=== PATIENT | female | born 1990 | race Caucasian/White ===

== ENCOUNTER 2018-08-06 11:24 | Emergency (ER) | payer BC ==
[2018-08-06 12:04] VITALS: BP 124/77
--- NOTE | 2018-08-06 12:28 | UC ---
General HPI - HPI Summary HPI Summary: Well yesterday, with onset of nausea and loose explosive watery stools yesterday. Approximately 10 episodes of diarrhea, has had emesis x 1. Crampy loer abdominal pain but no fever. No infectious contacts. No apparent food sources and no recent travel. Works as a aeroplane pilot. Voiding well, no symptoms of dehydration. - History of Current Complaint Chief Complaint: UCGI Stated Complaint: DIARRHEA,CHILLS, ABD CRAMPS Time Seen by Provider: 08/06/18 12:20 Hx Obtained From: Patient Hx Last Menstrual Period: 07/23/18 Onset/Duration: Sudden Onset, Lasting Days - 1 Timing: Intermittent Episodes Lasting: Onset Severity: Moderate Current Severity: Moderate Pain Intensity: 0 Associated Signs & Symptoms: Positive: Abdominal Pain - crampy, Nausea - initially, now resolved.. Negative: Fever, Headache - Allergy/Home Medications Allergies/Adverse Reactions: Allergies Allergy/AdvReac Type Severity Reaction Status Date / Time sulfamethoxazole Allergy Hives Verified 08/06/18 12:05 [From Bactrim] trimethoprim [From Bactrim] Allergy Hives Verified 08/06/18 12:05 Home Medications: Home Medications Ibuprofen TAB* [Motrin TAB* 600 MG] 600 mg PO ONCE PRN 08/06/18 [History Confirmed 08/06/18] l-Norgest/E.estradiol-E.estrad [Ashlyna 0.15-0.03 &0.01 mg] 1 tab PO DAILY 08/06 [History Confirmed 08/06/18] PMH/Surg Hx/FS Hx/Imm Hx Previously Healthy: Yes - Surgical History Surgical History: None - Family History Known Family History: Positive: Other - mom has celiac disease Family History: denies cardio-vascular history in family lineage - Social History Occupation: Employed Full-time Lives: With Family Alcohol Use: Weekly Alcohol Amount: 4 suki Substance Use Type: None Smoking Status (MU): Never Smoked Tobacco Review of Systems All Other Systems Reviewed And Are Negative: Yes Constitutional: Positive: Fatigue Gastrointestinal: Positive: Vomiting, Diarrhea, Nausea Genitourinary: Positive: Negative Psychological: Positive: Negative Is Patient Immunocompromised?: No Physical Exam Triage Information Reviewed: Yes Appearance: Ill-Appearing - looks fatigued. Vital Signs: Initial Vital Signs Temp 98.1 F 06/30/19 11:53 Pulse 81 08/06/18 11:53 Resp 24 08/06/18 11:53 BP 124/77 08/06/18 11:53 Pulse Ox 98 08/06/18 11:53 Eye Exam: Normal ENT: Positive: Pharynx normal Neck: Positive: Supple, Nontender, No Lymphadenopathy Respiratory: Positive: Lungs clear, Normal breath sounds Cardiovascular: Positive: RRR, No Murmur Abdomen Description: Positive: No Organomegaly, Soft, Other: - mild tenderness to palpation upper quadrants.. Negative: Distended, Guarding Bowel Sounds: Positive: Hypoactive Musculoskeletal Exam: Normal Neurological Exam: Normal Psychological Exam: Normal Course/Dx - Course Course Of Treatment: fluids to diarrhea diet, imodium as needed. - Diagnoses Provider Diagnosis: Gastroenteritis Discharge - Sign-Out/Discharge Documenting (check all that apply): Patient Departure All imaging exams completed and their final reports reviewed: No Studies - Discharge Plan Condition: Stable Disposition: HOME Patient Education Materials: Gastroenteritis (ED), Nutrition Tips for Relief of Diarrhea (ED) Forms: *Work Release Referrals: Amada Caraballo MD [Primary Care Provider] - Additional Instructions: You can use imodium 2mg up to 4 times per day, but be careful not to overuse as it could trigger constipation. Continue high intake of clear fluids to maintain hydration, and advance diet gradually. Anticipate that it could take up to a week for stools to return to normal. - Billing Disposition and Condition Condition: STABLE Disposition: Home
== END 2018-08-06 12:55 | disposition home or self-care (01) ==
LOC: UCCORT 11:24
DX: K52.9 Noninfective gastroenteritis and colitis, unspecified (principal); Z88.1 Allergy status to other antibiotic agents
CPT/HCPCS: 99211; G0463

== ENCOUNTER 2018-09-09 15:25 | Emergency (ER) | payer BC ==
[2018-09-09 16:01] VITALS: BP 125/84
--- NOTE | 2018-09-09 16:05 | UC ---
Lower Extremity/Ankle HPI - HPI Summary HPI Summary: Tried to avoid stepping on her cat and twisted the right foot. Unable to bear weight. - History of Current Complaint Stated Complaint: RIGHT FOOT INJURY Hx Obtained From: Patient Hx Last Menstrual Period: 07/23/18 ?: No Onset/Duration: Sudden Onset, Lasting Hours - ,1, Still Present Severity Initially: Severe Severity Currently: Severe Aggravating Factor(s): Standing, Ambulation Alleviating Factor(s): Rest, Elevation Able to Bear Weight: No - Allergies/Home Medications Allergies/Adverse Reactions: Allergies Allergy/AdvReac Type Severity Reaction Status Date / Time sulfamethoxazole Allergy Hives Verified 09/09/18 16:02 [From Bactrim] trimethoprim [From Bactrim] Allergy Hives Verified 09/09/18 16:02 PMH/Surg Hx/FS Hx/Imm Hx Previously Healthy: Yes - Surgical History Surgical History: None - Family History Known Family History: Positive: Hypertension, Other - mom has celiac disease Negative: Cardiac Disease, Diabetes Family History: denies cardio-vascular history in family lineage - Social History Occupation: Employed Full-time Lives: Alone - with BF Alcohol Use: Weekly Alcohol Amount: 4 suki Substance Use Type: None Smoking Status (MU): Never Smoked Tobacco Review of Systems All Other Systems Reviewed And Are Negative: Yes Musculoskeletal: Positive: Arthralgia - lateral right foot Is Patient Immunocompromised?: No Physical Exam Triage Information Reviewed: Yes Appearance: Well-Appearing, No Pain Distress - sitting in the wheelchair., Well- Nourished Vital Signs Reviewed: Yes Eyes: Positive: Conjunctiva Clear Neck exam: Normal Respiratory Exam: Normal Cardiovascular Exam: Normal Musculoskeletal: Positive: Strength Limited @ - right foot flex/ ext/ eversion, Other: - Tender over the base of the 5th metatarsal. Neurological Exam: Normal Psychological Exam: Normal Skin Exam: Normal Lower Extremity Course/Dx - Differential Dx/Diagnosis Differential Diagnosis/HQI/PQRI: Dislocation, Fracture (Closed), Sprain, Strain Provider Diagnosis: Sprain of right foot Discharge - Sign-Out/Discharge Documenting (check all that apply): Patient Departure All imaging exams completed and their final reports reviewed: Yes - Discharge Plan Condition: Stable Disposition: HOME Patient Education Materials: Foot Sprain (ED) Forms: *Work Release Referrals: Amada Caraballo MD [Primary Care Provider] - If Needed (If not improving) - Billing Disposition and Condition Condition: STABLE Disposition: Home
== END 2018-09-09 16:40 | disposition home or self-care (01) ==
LOC: UCCORT 15:25
DX: S93.601A Unspecified sprain of right foot, initial encounter (principal); X50.0XXA Overexertion from strenuous movement or load, initial encounter; Y93.89 Activity, other specified; Y92.9 Unspecified place or not applicable
CPT/HCPCS: 99212; G0463

== ENCOUNTER 2019-01-05 14:45 | Emergency (ER) | payer BC ==
[2019-01-05 15:13] VITALS: BP 131/74
[2019-01-05] MEDS ORDERED: Ketorolac INJ* 30 MG/ML 1 ML VIAL IM ONE (15:23)
[2019-01-05] MEDS ORDERED: Cyclobenzaprine TAB* 10 MG PO ONE (15:23)
--- NOTE | 2019-01-05 15:29 | UC ---
Neck Pain HPI - HPI Summary HPI Summary: 28-year-old woman comes in with a chief complaint of neck pain. Patient woke up about 11 AM today with neck pain. Pain is midline in the mid to lower neck posteriorly. The pain radiates down to about the mid thoracic and up to the base of the skull. At about 11:30 she took 400 mg of ibuprofen. Since that time the pains got worse and she has a lot of pain if she tries to move her neck. Extension of the neck makes the pain the worst. Denies any radiating pain down the arms. Denies any decreased strength or sensation. No headache. No fevers or chills has not been ill feels well otherwise. - History of Current Complaint Chief Complaint: UCGeneralIllness Stated Complaint: NECK AND SPINE PAIN Time Seen by Provider: 01/05/19 15:07 Hx Last Menstrual Period: 3 mo. cycle with BCP--LMP approx 2 mos ago. Pain Intensity: 7 - Allergies/Home Medications Allergies/Adverse Reactions: Allergies Allergy/AdvReac Type Severity Reaction Status Date / Time sulfamethoxazole Allergy Hives Verified 01/05/19 15:05 [From Bactrim] trimethoprim [From Bactrim] Allergy Hives Verified 01/05/19 15:05 Home Medications: Home Medications Ibuprofen TAB* [Advil TAB*] 400 mg PO Q6H PRN 01/05/19 [History Confirmed ] traZODone TAB* [Desyrel TAB*] 50 mg PO BEDTIME 01/05/19 [History Confirmed 01/05] PMH/Surg Hx/FS Hx/Imm Hx Previously Healthy: Yes - Surgical History Surgical History: Yes Surgery Procedure, Year, and Place: wisdom teeth extractions - Family History Known Family History: Positive: None, Hypertension, Other - mom has celiac disease Negative: Cardiac Disease, Diabetes Family History: denies cardio-vascular history in family lineage - Social History Alcohol Use: Weekly Alcohol Amount: 4 suki Substance Use Type: None Smoking Status (MU): Never Smoked Tobacco Review of Systems All Other Systems Reviewed And Are Negative: Yes Constitutional: Positive: Negative Skin: Positive: Negative Eyes: Positive: Negative ENT: Positive: Negative Respiratory: Positive: Negative Cardiovascular: Positive: Negative Gastrointestinal: Positive: Negative Motor: Positive: Other - see hpi Neurovascular: Positive: Negative Musculoskeletal: Positive: Other: - see hpi Neurological: Positive: Negative Psychological: Positive: Negative Is Patient Immunocompromised?: No Physical Exam Triage Information Reviewed: Yes Appearance: Well-Appearing, Well-Nourished, Pain Distress - mild with rom of neck Vital Signs: Initial Vital Signs Temp 97.4 F 01/05/19 15:06 Pulse 64 01/05/19 15:06 Resp 15 01/05/19 15:06 BP 131/74 01/05/19 15:06 Pulse Ox 100 01/05/19 15:06 Vital Signs Reviewed: Yes Eye Exam: Normal Eyes: Positive: Conjunctiva Clear Neck: Positive: Other: - Tender to palpation midline of the spinous processes posteriorly in the mid to lower neck and down into the thoracic spine to approximately T6. Respiratory: Positive: Lungs clear, Normal breath sounds, No respiratory distress Cardiovascular: Positive: RRR Musculoskeletal: Positive: Other: - Normal bilateral radial pulses finger wrists and elbows have full range of motion. Patient is not moving her shoulder secondary to increasing the pain. Normal sensation and capillary refill in the arms. Neurological: Positive: Alert Psychological: Positive: Age Appropriate Behavior Skin Exam: Normal Neck Pain Course/Dx - Course Course Of Treatment: Teaching Young: Rita Weaver S ([id number]) Business Systems Lead: DEL (BELENANCE) Report Date: 01/05/2019 16:11:00 Report Status: Final Start of Report Content Patient Name: PATRICK GARCIA Medical Record#: [id number] Ordering Physician: Niko Scott MD Acct.#: [id number] : Age: 28 Sex: F Location: [facility] Exam Date: 01/05/191537 ADM Status: REG ER Order Information: CT SPINE CERVICAL W/O Accession Number: [id number] CPT: 83416 Indication: Midline pain. CT of the cervical spine was obtained in the axial plane. Sagittal and coronal reconstructed images were obtained. Skull base demonstrates no fracture. Mastoid air cells are well aerated. The C1 ring is intact. There is no fracture or dislocation of the C1 ring. The atlantoaxial joint is unremarkable. At C2-C3 no disc protrusion is noted. No central foraminal stenosis is noted. At C3-C4 no disc protrusion is noted. No central foraminal stenosis is noted. At C4-C5, C5-C6, C6 -C7 and C7-T1 no disc protrusion is identified. There is straightening of the normal lordosis. The vertebral bodies appear normal in height. Spinal canal appears to be intact. Spinous processes are unremarkable. No prevertebral soft tissue swelling is noted. The lung apices are grossly unremarkable. IMPRESSION: There is no fracture of the cervical spine is noted. <Electronically signed by Rita Weaver MD in OV > 01/05/19 1605 Dictated By: Rita Weaver MD Dictated Date/Time: 01/05/19 1603 Transcribed Date/Time: 01/05/19 1603 Copy to: CC:Amada Caraballo MD; Niko Scott MD Imaging - [facility] Imaging - [facility] Imaging - [facility] [address] [address] ph [phone]) ph ) ph ([phone]) End of Report Content I discussed the CT report with the patient. And clinic she had Toradol 30 mg IM and a Flexeril. She still has neck pain but if she does not move her neck the pain is tolerable. She has no weakness or numbness or fever in clinic. At this time she does not have the symptoms of meningitis. I discussed signs and symptoms of meningitis and also of neurologic deficit. Plan is anti- inflammatories and muscle relaxers and reevaluation if not completely improved. I Let her know that if she had any neurologic deficit or any signs of meningitis she needed further evaluation in the emergency department. - Differential Dx/Diagnosis Provider Diagnosis: Neck pain Discharge ED - Sign-Out/Discharge Documenting (check all that apply): Patient Departure All imaging exams completed and their final reports reviewed: Yes - Discharge Plan Condition: Stable Disposition: HOME Prescriptions: Cyclobenzaprine TAB* [Flexeril 10 MG TAB*] 10 mg PO TID PRN #15 tab MDD 3 PRN Reason: Pain - Moderate Patient Education Materials: Acute Neck Pain (ED) Forms: *Work Release Referrals: Amada Caraballo MD [Primary Care Provider] - Additional Instructions: FOLLOW UP WITH YOUR DOCTOR IF NOT COMPLETELY IMPROVED. GET REEVALUATED SOONER IF NOT IMPROVING OR GO TO THE EMERGENCY DEPARTMENT IF WORSE; WEAKNESS, NUMBNESS, FEVER, PAIN, YOU FEEL ILL OR ANY QUESTIONS OR CONCERNS. - Billing Disposition and Condition Condition: STABLE Disposition: Home
== END 2019-01-05 16:32 | disposition home or self-care (01) ==
LOC: UCCORT 14:45
DX: M54.2 Cervicalgia (principal); Z88.2 Allergy status to sulfonamides
CPT/HCPCS: 72125; 96372; 99212; A9270-GY; G0463; J1885

== ENCOUNTER 2019-02-09 20:30 | Emergency (ER) | payer SELFPAY ==
[2019-02-09 20:41] VITALS: BP 125/76
[2019-02-09] MEDS ORDERED: Tetan/Diph/Pertus SYR(Tdap)* 0.5 ML SYR(BOOSTRIX) use SYR contains LATEX IM ONE (20:57)
[2019-02-09] MEDS ORDERED: Ibuprofen TAB* 600 MG PO ONE (21:01)
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
[2019-02-09] MEDS ORDERED: Mupirocin 2% OINT* TUBE TOPICAL ONE (21:27)
== END 2019-02-09 21:54 | disposition home or self-care (01) ==
LOC: UCCORT 20:30
DX: T22.012A Burn of unspecified degree of left forearm, initial encounter (principal); X10.1XXA Contact with hot food, initial encounter; Y92.9 Unspecified place or not applicable; Z88.2 Allergy status to sulfonamides; Z88.1 Allergy status to other antibiotic agents
CPT/HCPCS: 90471; 90715; 99213; A9270-GY; G0463